=== PATIENT | male | born 1975 | race Asian ===

== ENCOUNTER 2016-05-17 19:23 | Inpatient (IN) | payer BC ==
[2016-05-17 20:15] VITALS: BMI 20.3
--- NOTE | 2016-05-17 20:24 | HP ---
Admission ROS [facility] - HPI Allergies/Adverse Reactions: Allergies Allergy/AdvReac Type Severity Reaction Status Date / Time No Known Drug Allergies Allergy Verified 05/17/16 20:48 potato AdvReac Flatulence Verified 05/17/16 20:48 - Ebola screening Have you traveled outside of the country in the last 21 days: No Have you had contact with anyone from an Ebola affected area: No Do you have a fever: No Patient History - Patient Medical History Hx Anemia: No Hx Asthma: Yes Hx Chronic Obstructive Pulmonary Disease (COPD): No Hx Cancer: No Hx Cardiac Disorders: No Hx Congestive Heart Failure: No Hx Hypertension: Yes Hx Hypercholesterolemia: No Hx Pacemaker: No HX Cerebrovascular Accident: No Hx Seizures: No Hx Dementia: No Hx Diabetes: No Hx Gastrointestinal Disorders: No Hx Liver Disease: No Hx Genitourinary Disorders: No Hx Sexually Transmitted Disorders: No Hx Renal Disease (ESRD): No Hx Thyroid Disease: No Hx Human Immunodeficiency Virus (HIV): No Hx Hepatitis C: No Hx Depression: Yes Hx Suicide Attempt: No Hx Bipolar Disorder: No Hx Schizophrenia: No - Patient Surgical History Past Surgical History: Yes Hx Neurologic Surgery: No Hx Cataract Extraction: No Hx Cardiac Surgery: No Hx Lung Surgery: No Hx Breast Surgery: No Hx Breast Biopsy: No Hx Abdominal Surgery: No Hx Appendectomy: Yes (AT 16 YRS OLD) Hx Cholecystectomy: No Hx Genitourinary Surgery: No Hx Section: No Hx Orthopedic Surgery: No Anesthesia Reaction: No - PPD History Date: 08/18/14 Results: 0 mm - Smoking Cessation Smoking history: Current every day smoker Have you smoked in the past 12 months: No Aproximately how many cigarettes per day: 10 Cigars Per Day: 0 Hx Chewing Tobacco Use: No Initiated information on smoking cessation: Yes 'Breaking Loose' booklet given: 05/17/16 Family Disease History - Family Disease History Family Disease History: Heart Disease: Father (HTN; ETOH DEPENDENT), Other: Father Cleared for Admission S - Detox or Rehab [facility] Level of Care: Medically Managed Detox Regimen/Protocol: Librium Screened but not Admitted - Documentation of Visit Screened but not Admitted: Yes Left Prior to Completion of Assessment: No Insurance Authorization Denied: No Patient Does Not Meet Criteria for Admission: Yes Level of Care Recommended at this Time: ER Evaluation/Care Alternative Treatment/Senior Care Info Provided: No Additional Information/Explanation: patient reports fell on parking lot ground, head and lumbar hit the ground, pain of head and back, ambulance was called and information provided to ER, return for alcohol detox when medically cleared. S Breath Alcohol Content Breath Alcohol Content: 0.159 Vital Signs - Vital Signs Vital Signs Refused: No Temperature: 97.1 F Temperature Source: Oral Pulse Rate: 93 Respiratory Rate: 18 Blood Pressure: 144/95 BP Location: Left Arm Blood Pressure Position: Sitting - Height Height: 5 ft 8 in - Weight Weight: 134 lb Weight Measurement Method: Standing Scale Body Mass Index (BMI): 20.3 - Bowel Function Bowel Movement: Yes
[2016-05-17] MEDS ORDERED: P-EPHED 60MG/TRIPROLIDI 2.5MG TABLET PO PRN (21:32)
[2016-05-17] MEDS ORDERED: hydrOXYzine PAMOATE 50 MG CAPSULE (FP) PO PRN (21:32)
[2016-05-17] MEDS ORDERED: chlordiazePOXIDE HCL 25 MG CAPSULE PO PRN (21:32)
[2016-05-17] MEDS ORDERED: MAGNESIUM CITRATE 300 ML BOTTLE PO PRN (21:32)
[2016-05-17] MEDS ORDERED: ACETAMINOPHEN 325 MG TABLET (FP) PO PRN (21:32)
[2016-05-17] MEDS ORDERED: LOPERAMIDE HCL 2 MG CAPSULE PO PRN (21:32)
[2016-05-17] MEDS ORDERED: guaiFENesin/D-METHORPHAN HB 10 ML UNIT-DOSE CUPS PO PRN (21:32)
[2016-05-17] MEDS ORDERED: MENTHOL/PHENOL 1 EACH UD MM PRN (21:32)
[2016-05-17] MEDS ORDERED: chlordiazePOXIDE HCL 25 MG CAPSULE PO ONE (21:32)
[2016-05-17] MEDS ORDERED: MAGNESIUM HYDROX 2400MG/30ML ORAL SUSPENSION 30 ML CUP PO PRN (21:32)
--- NOTE | 2016-05-17 22:56 | HP ---
CIWA Score - CIWA Score Nausea/Vomitin-Mild Nausea/No Vomiting Muscle Tremors: 4-Moderate,w/Arms Extend Anxiety: 4-Mod. Anxious/Guarded Agitation: 4-Moderately Restless Paroxysmal Sweats: 1-Minimal Palms Moist Orientation: 3-Disoriented Date>2 days Tacttile Disturbances: 0-None Auditory Disturbances: 0-None Visual Disturbances: 0-None Headache: 0-None Present CIWA-Ar Total Score: 17 Admission ROS S - HPI Chief Complaint: withdrawal sx Allergies/Adverse Reactions: Allergies Allergy/AdvReac Type Severity Reaction Status Date / Time No Known Drug Allergies Allergy Verified 05/17/16 20:48 potato AdvReac Flatulence Verified 05/17/16 20:48 History of Present Illness: 41 years old male with long history of alcohol dependence, has asthma hypertension depression gerd is admitted to detox Exam Limitations: No Limitations - Ebola screening Have you traveled outside of the country in the last 21 days: No Have you had contact with anyone from an Ebola affected area: No Have you been sick,other than usual withdrawal symptoms: No Do you have a fever: No - Review of Systems Constitutional: Chills, Loss of Appetite, Changes in sleep, Unexplained wgt Loss EENT: reports: No Symptoms Reported, Dental Problems (decaious lower teeth) Respiratory: reports: No Symptoms reported Cardiac: reports: Palpitations GI: reports: Nausea, Poor Appetite, Poor Fluid Intake, Indigestion, Abdominal cramping : reports: No Symptoms Reported Musculoskeletal: reports: Back Pain, Muscle Pain Integumentary: reports: No Symptoms Reported Neuro: reports: Tremors Endocrine: reports: No Symptoms Reported Hematology: reports: Easy Bleeding (when brushing teeth) Psychiatric: reports: Judgement Intact, Depressed Other Systems: Reviewed and Negative Patient History - Patient Medical History Hx Anemia: No Hx Asthma: Yes Hx Chronic Obstructive Pulmonary Disease (COPD): No Hx Cancer: No Hx Cardiac Disorders: No Hx Congestive Heart Failure: No Hx Hypertension: Yes Hx Hypercholesterolemia: No Hx Pacemaker: No HX Cerebrovascular Accident: No Hx Seizures: No Hx Dementia: No Hx Diabetes: No Hx Gastrointestinal Disorders: No Hx Liver Disease: Yes (fatty liver x 3 years) Hx Genitourinary Disorders: No Hx Sexually Transmitted Disorders: No Hx Renal Disease (ESRD): No Hx Thyroid Disease: No Hx Human Immunodeficiency Virus (HIV): No Hx Hepatitis C: No Hx Depression: Yes Hx Suicide Attempt: No Hx Bipolar Disorder: No Hx Schizophrenia: No - Patient Surgical History Past Surgical History: Yes Hx Neurologic Surgery: No Hx Cataract Extraction: No Hx Cardiac Surgery: No Hx Lung Surgery: No Hx Breast Surgery: No Hx Breast Biopsy: No Hx Abdominal Surgery: No Hx Appendectomy: Yes (AT 16 YRS OLD) Hx Cholecystectomy: No Hx Genitourinary Surgery: No Hx Orthopedic Surgery: No Anesthesia Reaction: No - PPD History Previous Implant?: Yes Documented Results: Negative w/proof Implanted On Prior R Admission?: Yes Date: 08/18/14 Results: 0 mm PPD to be Administered?: Yes - Smoking Cessation Smoking history: Former smoker Have you smoked in the past 12 months: No Aproximately how many cigarettes per day: 0 Cigars Per Day: 0 Hx Chewing Tobacco Use: Yes Initiated information on smoking cessation: Yes 'Breaking Loose' booklet given: 05/17/16 - Substance & Tx. History Hx Alcohol Use: Yes Hx Substance Use: No Substance Use Type: Alcohol Hx Substance Use Treatment: Yes - Substances Abused Alcohol Route: Oral Frequency: Daily Amount used: pint volka Age of first use: 32 Date of Last Use: 05/17/16 Family Disease History - Family Disease History Family Disease History: Heart Disease: Father (HTN; ETOH DEPENDENT), Other: Father Admission Physical Exam S - Vital Signs Vital Signs: Vital Signs - 24 hr 05/17/16 05/17/16 20:11 21:28 Temperature 97.1 F L 97.1 F L Pulse Rate 93 H 93 H Respiratory 18 18 Rate Blood Pressure 144/95 144/95 - Physical General Appearance: Yes: Appropriately Dressed, Moderate Distress, Alcohol on Breath, Thin, Tremorous, Irritable, Sweating, Anxious HEENTM: Yes: Hearing grossly Normal, Normal ENT Inspection, Normocephalic, Normal Voice Respiratory: Yes: Chest Non-Tender, Lungs Clear, Normal Breath Sounds, No Respiratory Distress, No Accessory Muscle Use Neck: Yes: Supple, Trachea in good position Breast: Yes: Breasts Symetrical Cardiology: Yes: Regular Rhythm, Regular Rate, S1, S2 Abdominal: Yes: Non Tender, Soft Genitourinary: Yes: Within Normal Limits Back: Yes: Normal Inspection Musculoskeletal: Yes: full range of Motion, Gait Steady, Back pain Extremities: Yes: Normal Range of Motion, Non-Tender, Tremors Neurological: Yes: Fully Oriented, Alert, Motor Strength 5/5, Normal Response, Depressed Affect Integumentary: Yes: Warm, Moist Lymphatic: Yes: Within Normal Limits - Diagnostic (1) Back pain Current Visit: Yes Status: Chronic Qualifiers: Back pain location: low back pain Chronicity: acute Back pain laterality: unspecified Sciatica presence: without sciatica Qualified Code(s): M54.5 - Low back pain (2) Alcohol dependence with uncomplicated intoxication Current Visit: Yes Status: Acute (3) Depression Current Visit: Yes Status: Suspected Qualifiers: Depression Type: dysthymia Qualified Code(s): F34.1 - Dysthymic disorder Comment: trazodone (4) GERD (gastroesophageal reflux disease) Current Visit: Yes Status: Acute Qualifiers: Esophagitis presence: without esophagitis Qualified Code(s): K21.9 - Gastro-esophageal reflux disease without esophagitis (5) Asthma Current Visit: Yes Status: Acute Qualifiers: Asthma severity: mild persistent Asthma complication type: with status asthmaticus Qualified Code(s): J45.32 - Mild persistent asthma with status asthmaticus (6) Hypertension Current Visit: Yes Status: Acute Qualifiers: Hypertension type: essential hypertension Qualified Code(s): I10 - Essential (primary) hypertension Cleared for Admission [facility] - Detox or Rehab [facility] Level of Care: Medically Managed Detox Regimen/Protocol: Librium S Breath Alcohol Content Breath Alcohol Content: 0.159 Urine Drug Screen - Results Drug Screen Negative: Yes
[2016-05-17] MEDS ORDERED: ALBUTEROL SO4 6.7 GM HFA INHALER IH PRN (23:07)
[2016-05-17] MEDS ORDERED: cloNIDine HCL 0.1 MG TABLET PO PRN (23:07)
[2016-05-17] MEDS ORDERED: NICOTINE POLACRILEX 2 MG GUM BUC PRN (23:10)
[2016-05-17] MEDS ORDERED: COLLOIDAL OATMEAL 1 BAR EACH TP PRN (23:11)
[2016-05-18] MEDS: RANITIDINE HCL 150 MG TABLET (FP) PO SCH ×3 (00:30→22:31)
[2016-05-18] MEDS: chlordiazePOXIDE HCL 25 MG CAPSULE PO SCH ×5 (00:30→22:32)
[2016-05-18] MEDS: THIAMINE HCL 100 MG TABLET (FP) PO SCH ×2 (00:31→22:31)
[2016-05-18] MEDS: diphenhydrAMINE HCL 50 MG CAPSULE PO PRN (00:33)
[2016-05-18] MEDS: MAG HYDROX/AL HYDROX/SIMETH 30 ML UNIT-DOSE CUP PO PRN ×2 (00:36→22:31)
[2016-05-18 10:02] LABS: URINE APPEARANCE CLEAR; URINE BILIRUBIN NEGATIVE (NEGATIVE); URINE BLOOD NEGATIVE (NEGATIVE); URINE COLOR YELLOW; URINE GLUCOSE (UA) NEGATIVE (NEGATIVE); URINE KETONE NEGATIVE (NEGATIVE); URINE LEUK ESTERASE NEGATIVE (NEGATIVE); URINE NITRITE NEGATIVE (NEGATIVE); URINE UROBILINOGEN NEGATIVE E.U./dl (0.2-1.0)
[2016-05-18 10:04] LABS: MCH 29.8 pg (25.7-33.7); MCHC 32.8 g/dl (32.0-35.9); MEAN CELL VOLUME 90.8 fl (80-96); MEAN PLT VOLUME 8.7 fl (7.5-11.1); RDW 13.7 % (11.9-15.9); WHITE BLOOD COUNT 2.4 K/mm3 (4.0-10.0)
[2016-05-18 10:07] LABS: PLATELET COUNT 36 K/MM3 (134-434)
[2016-05-18 10:12] LABS: URINE PROTEIN 1+ (NEGATIVE)
[2016-05-18 10:14] LABS: ALBUMIN 3.6 g/dl (3.4-5.0); ALK PHOS 63 U/L (45-117); ANION GAP 10 (8-16); CALCIUM 8.1 mg/dL (8.5-10.1); CO2 28 mmol/L (21-32); GLUCOSE,RANDOM 79 mg/dL (74-106); SGOT/AST 140 U/L (15-37); SGPT/ALT 91 U/L (12-78)
[2016-05-18 10:15] LABS: URINE MUCUS RARE; URINE RBC 3 /hpf (0-3)
[2016-05-18 10:23] LABS: BILIRUBIN,TOTAL 0.4 mg/dL (0.2-1.0); CREATININE 0.6 mg/dL (0.7-1.3); TOT PROT 7.1 g/dl (6.4-8.2)
--- NOTE | 2016-05-18 10:38 | PN ---
S CIWA - CIWA Score Nausea/Vomitin-No Nausea/No Vomiting Muscle Tremors: 4-Moderate,w/Arms Extend Anxiety: 4-Mod. Anxious/Guarded Agitation: 4-Moderately Restless Paroxysmal Sweats: 3 Orientation: 0-Oriented Tacttile Disturbances: 0-None Auditory Disturbances: 0-None Visual Disturbances: 0-None Headache: 0-None Present CIWA-Ar Total Score: 15 [facility] Progress Note (SOAP) Subjective: shakes sweats interrupted sleep agitation tired nausea body aches i need to speak to psych Objective: 05/18/16 10:36 Vital Signs Temperature 98.6 F 05/18/16 10:33 Pulse Rate 87 05/18/16 10:33 Respiratory Rate 16 05/18/16 10:33 Blood Pressure 144/85 05/18/16 10:33 O2 Sat by Pulse Oximetry (%) Laboratory Tests 05/18/16 05/18/16 05/18/16 07:00 07:00 07:00 WBC 2.4 L D RBC 3.58 L Hgb 10.6 L D Hct 32.5 L MCV 90.8 MCHC 32.8 RDW 13.7 D Plt Count 36 L* D MPV 8.7 Sodium 137 Potassium 3.5 Chloride 99 Carbon Dioxide 28 Anion Gap 10 BUN 9 D Creatinine 0.6 L D Creat Clearance w eGFR > 60 Random Glucose 79 Calcium 8.1 L Total Bilirubin 0.4 D AST 140 H D ALT 91 H D Alkaline Phosphatase 63 Total Protein 7.1 Albumin 3.6 Urine Color Yellow Urine Appearance Clear Urine pH 6.0 Ur Specific [place] 1.024 Urine Protein 1+ H Urine Glucose (UA) Negative Urine Ketones Negative Urine Blood Negative Urine Nitrite Negative Urine Bilirubin Negative Urine Urobilinogen Negative Ur Leukocyte Esterase Negative Urine RBC 3 Urine WBC None Urine Mucus Rare awake/alert lying in bed no acute distress elevated ast/alt low platelettes d/c tylenol repeat labs Assessment: 05/18/16 10:37 withdrawal sx Plan: continue detox increase fluids pending labs psych ordered
[2016-05-18] MEDS ORDERED: ONDANSETRON *ODT* 4 MG TABLET SL PRN (10:41)
--- NOTE | 2016-05-18 11:12 | EKG ---
Test Reason : Blood Pressure : / mmHG Vent. Rate : 081 BPM Atrial Rate : 081 BPM P-R Int : 134 ms QRS Dur : 070 ms QT Int : 358 ms P-R-T Axes : 073 042 030 degrees QTc Int : 415 ms NORMAL SINUS RHYTHM WITH SINUS ARRHYTHMIA NO PREVIOUS ECGS AVAILABLE Confirmed by DELROY GALAN MD ([id number]) on 05/18/2016 11:12:11 AM Referred By: Confirmed By:DELROY GALAN MD
--- NOTE | 2016-05-18 11:28 | CONSULT ---
[facility] Psychiatric Consult - Data Date of interview: 05/18/16 Admission source: [facility] Identifying data: Readmission to [facility] for this 41 y/o -born male seeking detox treatment at [address] [place] [address] for alcohol dependence.He is without children,homeless,currently unemployed and supported on Public Assistance. Substance Abuse History: - Smoking Cessation. Smoking history: Former smoker. Have you smoked in the past 12 months: No. Aproximately how many cigarettes per day: 0. Cigars Per Day: 0. Hx Chewing Tobacco Use: Yes. Initiated information on smoking cessation: Yes. 'Breaking Loose' booklet given: . - Substance & Tx. History. Hx Alcohol Use: Yes. Hx Substance Use: No. Substance Use Type: Alcohol. Hx Substance Use Treatment: Yes. - Substances Abused. Alcohol. Route: Oral. Frequency: Daily. Amount used: pint volka. Age of first use: 32. Date of Last Use: 05/17/16. Discussed in this session.Patient confirmed this pattern of substance use. Medical History: Remarkable for bronchial asthma,hypertension,fatty liver, diabetes mellitus,GERD and a history of appendectomy (age 16). Psychiatric History: No reported history of mental illness or psychiatric hospitalizations. Physical/Sexual Abuse/Trauma History: Patient denies. Additional Comment: Drug Screen is negative. Mental Status Exam - Mental Status Exam Alert and Oriented to: Time, Place, Person Cognitive Function: Good Patient Appearance: Well Groomed (short stature) Mood: Hopeful, Euthymic Affect: Appropriate, Normal Range Patient Behavior: Fatigued, Talkative, Appropriate, Cooperative (friendly) Speech Pattern: Clear, Appropriate Voice Loudness: Normal Thought Process: Goal Oriented Thought Disorder: Not Present Hallucinations: Denies Suicidal Ideation: Denies Homicidal Ideation: Denies Insight/Judgement: Fair Sleep: Poorly, Difficulty falling asleep (wants trazodone) Appetite: Good Muscle strength/Tone: Normal Psychiatric Findings - Problem List ([place] 1, 2,3) (1) Alcohol dependence with uncomplicated intoxication Current Visit: Yes Status: Acute (2) Alcohol-induced mood disorder Current Visit: Yes Status: Acute (3) Alcohol induced insomnia Current Visit: Yes Status: Chronic (4) Asthma Current Visit: Yes Status: Acute Qualifiers: Asthma severity: mild persistent Asthma complication type: with status asthmaticus Qualified Code(s): J45.32 - Mild persistent asthma with status asthmaticus (5) GERD (gastroesophageal reflux disease) Current Visit: Yes Status: Chronic Qualifiers: Esophagitis presence: without esophagitis Qualified Code(s): K21.9 - Gastro-esophageal reflux disease without esophagitis (6) Hypertension Current Visit: Yes Status: Chronic Qualifiers: Hypertension type: essential hypertension Qualified Code(s): I10 - Essential (primary) hypertension (7) Back pain Current Visit: Yes Status: Chronic Qualifiers: Back pain location: low back pain Chronicity: acute Back pain laterality: unspecified Sciatica presence: without sciatica Qualified Code(s): M54.5 - Low back pain - Initial Treatment Plan Initial Treatment Plan: Psychoeducation.Detoxification.Trazodone 100 mg po hs ( patient's request).Patient is made aware of the risk of priapism and he is advised to alert MD/RN if occurrence of painful/prolonged erection.He agrees to adhere to this careplan.Observation.
[2016-05-18] MEDS: PRENATAL VITAMINS W/ FOLIC ACID TABLET (FP) PO SCH (11:50)
--- NOTE | 2016-05-18 13:42 | PN ---
[facility] Progress Note Note: 1. late last night pt fell in [facility] parking lot hit head and back 2. pt sent to [place] ED for evaluation 3. No CT scan done while pt was there. 4. pt returned to start detox 5. pt lab result for platelet is 36 today. will send pt back to ED for CT scan and re-evaluation once cleared pt can return to complete detox. report given to LOUANN Reyes who will consult with DUNCAN Farrar.
[2016-05-18] MEDS: LIDOCAINE 5% TOPICAL PATCH TP SCH (14:00)
[2016-05-18] MEDS: NICOTINE 21 MG/24 HOURS TOPICAL PATCH TD SCH (14:01)
[2016-05-18] MEDS: traZODone HCL 100 MG TABLET (FP) PO SCH (22:31)
[2016-05-18] MEDS: CYCLOBENZAPRINE HCL 10 MG TABLET (FP) PO PRN (22:31)
[2016-05-19] MEDS: chlordiazePOXIDE HCL 25 MG CAPSULE PO SCH ×3 (06:08→17:50)
[2016-05-19] MEDS: RANITIDINE HCL 150 MG TABLET (FP) PO SCH ×2 (10:11→22:16)
[2016-05-19] MEDS: PRENATAL VITAMINS W/ FOLIC ACID TABLET (FP) PO SCH (10:11)
[2016-05-19] MEDS: LORATADINE 10 MG TABLET PO SCH ×3 (10:12→20:47)
[2016-05-19] MEDS: HYDROCORTISONE 1% TOPICAL CREAM 30 GM TUBE TP SCH ×2 (10:15→22:15)
[2016-05-19] MEDS: LIDOCAINE 5% TOPICAL PATCH TP SCH (10:15)
[2016-05-19] MEDS: CYCLOBENZAPRINE HCL 10 MG TABLET (FP) PO PRN (10:15)
[2016-05-19] MEDS: NICOTINE 21 MG/24 HOURS TOPICAL PATCH TD SCH (10:16)
[2016-05-19 11:15] LABS: ALBUMIN 3.9 g/dl (3.4-5.0); ANION GAP 8 (8-16); CO2 27 mmol/L (21-32)
[2016-05-19 11:16] LABS: BASOPHIL 0.5 % (0-2.0); EOSINOPHIL 1.6 % (0-4.5); MCH 29.8 pg (25.7-33.7); MCHC 32.5 g/dl (32.0-35.9); MEAN CELL VOLUME 91.8 fl (80-96); NEUTROPHILS 59.6 % (42.8-82.8); PLATELET COUNT 50 K/MM3 (134-434)
[2016-05-19 11:21] LABS: ALK PHOS 70 U/L (45-117); BILIRUBIN,TOTAL 0.7 mg/dL (0.2-1.0); CREATININE 0.5 mg/dL (0.7-1.3); GLUCOSE,RANDOM 85 mg/dL (74-106); SGOT/AST 157 U/L (15-37); SGPT/ALT 108 U/L (12-78); TOT PROT 7.6 g/dl (6.4-8.2)
--- NOTE | 2016-05-19 11:33 | PN ---
S CIWA - CIWA Score Nausea/Vomitin Muscle Tremors: 3 Anxiety: 3 Agitation: 3 Paroxysmal Sweats: 1-Minimal Palms Moist Orientation: 0-Oriented Tacttile Disturbances: 1-Very Mild Itch/Numbness Auditory Disturbances: 1-Very Mild Visual Disturbances: 1-Very Mild Sensitivity Headache: 2-Mild CIWA-Ar Total Score: 18 BHS Progress Note (SOAP) Subjective: ALERT,IRRITABLE,ANXIOUS,INTERRUPTED SLEEP,TREMOR,RASH ON FACE Objective: 05/19/16 11:30 Vital Signs Temperature 96.4 F L 05/19/16 09:41 Pulse Rate 117 H 05/19/16 09:41 Respiratory Rate 18 05/19/16 09:41 Blood Pressure 145/94 05/19/16 09:41 O2 Sat by Pulse Oximetry (%) EKG NSR WITH SINUS ARRHYTHMIA Laboratory Last Values WBC 3.0 K/mm3 (4.0-10.0) L 05/19/16 07:50 RBC 3.96 M/mm3 (4.00-5.60) L 05/19/16 07:50 Hgb 11.8 GM/dL (11.7-16.9) D 05/19/16 07:50 Hct 36.3 % (35.4-49) D 05/19/16 07:50 MCV 91.8 fl (80-96) 05/19/16 07:50 MCHC 32.5 g/dl (32.0-35.9) 05/19/16 07:50 RDW 14.0 % (11.9-15.9) 05/19/16 07:50 Plt Count 50 K/MM3 (134-434) L D 05/19/16 07:50 MPV 10.0 fl (7.5-11.1) D 05/19/16 07:50 Neutrophils % 59.6 % (42.8-82.8) 05/19/16 07:50 Lymphocytes % 17.1 % (8-40) 05/19/16 07:50 Monocytes % 21.2 % (3.8-10.2) H 05/19/16 07:50 Eosinophils % 1.6 % (0-4.5) D 05/19/16 07:50 Basophils % 0.5 % (0-2.0) 05/19/16 07:50 Sodium 137 mmol/L (136-145) 05/19/16 07:50 Potassium 4.0 mmol/L (3.5-5.1) 05/19/16 07:50 Chloride 102 mmol/L (98-107) 05/19/16 07:50 Carbon Dioxide 27 mmol/L (21-32) 05/19/16 07:50 Anion Gap 8 (8-16) 05/19/16 07:50 BUN 9 mg/dL (7-18) D 05/19/16 07:50 Creatinine 0.5 mg/dL (0.7-1.3) L D 05/19/16 07:50 Creat Clearance w eGFR > 60 (>60) 05/19/16 07:50 Random Glucose 85 mg/dL (74-106) 05/19/16 07:50 Calcium 9.0 mg/dL (8.5-10.1) 05/19/16 07:50 Total Bilirubin 0.7 mg/dL (0.2-1.0) D 05/19/16 07:50 AST 157 U/L (15-37) H D 05/19/16 07:50 ALT 108 U/L (12-78) H D 05/19/16 07:50 Alkaline Phosphatase 70 U/L (45-117) 05/19/16 07:50 Total Protein 7.6 g/dl (6.4-8.2) 05/19/16 07:50 Albumin 3.9 g/dl (3.4-5.0) 05/19/16 07:50 Urine Color Yellow 05/18/16 07:00 Urine Appearance Clear 05/18/16 07:00 Urine pH 6.0 (5.0-8.0) 05/18/16 07:00 Ur Specific [place] 1.024 (1.001-1.035) 05/18/16 07:00 Urine Protein 1+ (NEGATIVE) H 05/18/16 07:00 Urine Glucose (UA) Negative (NEGATIVE) 05/18/16 07:00 Urine Ketones Negative (NEGATIVE) 05/18/16 07:00 Urine Blood Negative (NEGATIVE) 05/18/16 07:00 Urine Nitrite Negative (NEGATIVE) 05/18/16 07:00 Urine Bilirubin Negative (NEGATIVE) 05/18/16 07:00 Urine Urobilinogen Negative E.U./dl (0.2-1.0) 05/18/16 07:00 Ur Leukocyte Esterase Negative (NEGATIVE) 05/18/16 07:00 Urine RBC 3 /hpf (0-3) 05/18/16 07:00 Urine WBC None /hpf (3-5) 05/18/16 07:00 Urine Mucus Rare 05/18/16 07:00 RPR Titer Nonreactive (NONREACTIVE) 05/18/16 07:00 Assessment: 05/19/16 11:32 WITHDRAWAL SYMPTOM Plan: CONTINUE DETOX
[2016-05-19] MEDS: IBUPROFEN 400 MG TABLET (FP) PO PRN ×2 (12:47→22:17)
[2016-05-19] MEDS: THIAMINE HCL 100 MG TABLET (FP) PO SCH (22:15)
[2016-05-19] MEDS: traZODone HCL 100 MG TABLET (FP) PO SCH (22:15)
[2016-05-19] MEDS: chlordiazePOXIDE 5 MG CAPSULE PO SCH (22:16)
[2016-05-20] MEDS: chlordiazePOXIDE 5 MG CAPSULE PO SCH ×3 (05:22→17:51)
[2016-05-20] MEDS: HYDROCORTISONE 1% TOPICAL CREAM 30 GM TUBE TP SCH ×2 (10:13→22:56)
[2016-05-20] MEDS: PRENATAL VITAMINS W/ FOLIC ACID TABLET (FP) PO SCH (10:13)
[2016-05-20] MEDS: LORATADINE 10 MG TABLET PO SCH (10:13)
[2016-05-20] MEDS: NICOTINE 21 MG/24 HOURS TOPICAL PATCH TD SCH (10:15)
[2016-05-20] MEDS: LIDOCAINE 5% TOPICAL PATCH TP SCH (10:16)
[2016-05-20] MEDS: RANITIDINE HCL 150 MG TABLET (FP) PO SCH ×2 (10:17→22:54)
--- NOTE | 2016-05-20 14:11 | PN ---
BHS Progress Note (SOAP) Subjective: sweating,interrupted sleep,restless Objective: 05/20/16 14:09 Vital Signs - 8 hr 05/20/16 10:00 Temperature 97.3 F L Pulse Rate 95 H Respiratory 20 Rate Blood Pressure 126/86 Laboratory Tests 05/18/16 05/18/16 05/18/16 07:00 07:00 07:00 WBC 2.4 L D RBC 3.58 L Hgb 10.6 L D Hct 32.5 L MCV 90.8 MCHC 32.8 RDW 13.7 D Plt Count 36 L* D MPV 8.7 Neutrophils % Lymphocytes % Monocytes % Eosinophils % Basophils % Sodium 137 Potassium 3.5 Chloride 99 Carbon Dioxide 28 Anion Gap 10 BUN 9 D Creatinine 0.6 L D Creat Clearance w eGFR > 60 Random Glucose 79 Calcium 8.1 L Total Bilirubin 0.4 D AST 140 H D ALT 91 H D Alkaline Phosphatase 63 Total Protein 7.1 Albumin 3.6 Urine Color Urine Appearance Urine pH Ur Specific [place] Urine Protein Urine Glucose (UA) Urine Ketones Urine Blood Urine Nitrite Urine Bilirubin Urine Urobilinogen Ur Leukocyte Esterase Urine RBC Urine WBC Urine Mucus RPR Titer Nonreactive 05/18/16 05/19/16 05/19/16 07:00 07:50 07:50 WBC 3.0 L RBC 3.96 L Hgb 11.8 D Hct 36.3 D MCV 91.8 MCHC 32.5 RDW 14.0 Plt Count 50 L D MPV 10.0 D Neutrophils % 59.6 Lymphocytes % 17.1 Monocytes % 21.2 H Eosinophils % 1.6 D Basophils % 0.5 Sodium 137 Potassium 4.0 Chloride 102 Carbon Dioxide 27 Anion Gap 8 BUN 9 D Creatinine 0.5 L D Creat Clearance w eGFR > 60 Random Glucose 85 Calcium 9.0 Total Bilirubin 0.7 D AST 157 H D ALT 108 H D Alkaline Phosphatase 70 Total Protein 7.6 Albumin 3.9 Urine Color Yellow Urine Appearance Clear Urine pH 6.0 Ur Specific [place] 1.024 Urine Protein 1+ H Urine Glucose (UA) Negative Urine Ketones Negative Urine Blood Negative Urine Nitrite Negative Urine Bilirubin Negative Urine Urobilinogen Negative Ur Leukocyte Esterase Negative Urine RBC 3 Urine WBC None Urine Mucus Rare RPR Titer labs noted Assessment: 05/20/16 14:10 withdrawal sx. Plan: continue detox
[2016-05-20] MEDS: THIAMINE HCL 100 MG TABLET (FP) PO SCH (22:54)
[2016-05-20] MEDS: chlordiazePOXIDE HCL 10 MG CAPSULE PO SCH (22:54)
[2016-05-20] MEDS: traZODone HCL 100 MG TABLET (FP) PO SCH (22:54)
[2016-05-20] MEDS: diphenhydrAMINE HCL 50 MG CAPSULE PO PRN (22:56)
[2016-05-21] MEDS: chlordiazePOXIDE HCL 10 MG CAPSULE PO SCH ×2 (05:21→10:21)
[2016-05-21 05:58] VITALS: BP 115/63; PULSE 63; TEMP 97.9
--- NOTE | 2016-05-21 09:09 | DS ---
[facility] Detox Discharge Summary Admission Date: 05/17/16 Discharge Date: 05/21/16 - History Present History: Alcohol Dependence, Sedative Dependence - Physical Exam Results Vital Signs: Vital Signs Temperature 97.9 F 05/21/16 05:58 Pulse Rate 63 05/21/16 05:58 Respiratory Rate 16 05/21/16 05:58 Blood Pressure 115/63 05/21/16 05:58 O2 Sat by Pulse Oximetry (%) - Treatment Hospital Course: Detox Protocol Followed, Detoxed Safely, Responded well, Discharged Condition Good, Rehab Referral Accepted - Medication Discharge Medications: Ambulatory Orders Trazodone HCl [Desyrel -] 100 mg PO HS #30 tablet 05/18/16 - Diagnosis (1) Alcohol dependence with uncomplicated intoxication Current Visit: Yes Status: Chronic (2) Alcohol-induced mood disorder Current Visit: Yes Status: Chronic (3) Asthma Current Visit: Yes Status: Chronic Qualifiers: Asthma severity: mild persistent Asthma complication type: with status asthmaticus Qualified Code(s): J45.32 - Mild persistent asthma with status asthmaticus (4) Alcohol induced insomnia Current Visit: Yes Status: Chronic (5) Back pain Current Visit: Yes Status: Chronic Qualifiers: Back pain location: low back pain Chronicity: acute Back pain laterality: unspecified Sciatica presence: without sciatica Qualified Code(s): M54.5 - Low back pain (6) GERD (gastroesophageal reflux disease) Current Visit: Yes Status: Chronic Qualifiers: Esophagitis presence: without esophagitis Qualified Code(s): K21.9 - Gastro-esophageal reflux disease without esophagitis (7) Hypertension Current Visit: Yes Status: Chronic Qualifiers: Hypertension type: essential hypertension Qualified Code(s): I10 - Essential (primary) hypertension (8) Depression Current Visit: Yes Status: Suspected Qualifiers: Depression Type: dysthymia Qualified Code(s): F34.1 - Dysthymic disorder (9) Alcohol withdrawal Current Visit: No Status: Acute (10) Drug-induced mood disorder Current Visit: No Status: Acute (11) Fall Current Visit: No Status: Acute (12) Head trauma Current Visit: No Status: Acute (13) Rib pain on right side Current Visit: No Status: Acute (14) Xanax use disorder, mild, abuse Current Visit: No Status: Acute (15) Blackout spell Current Visit: No Status: Chronic - AMA Did Patient Leave Against Medical Advice: No
[2016-05-21] MEDS: PRENATAL VITAMINS W/ FOLIC ACID TABLET (FP) PO SCH (10:21)
[2016-05-21] MEDS: LORATADINE 10 MG TABLET PO SCH (10:21)
[2016-05-21] MEDS: HYDROCORTISONE 1% TOPICAL CREAM 30 GM TUBE TP SCH (10:22)
[2016-05-21] MEDS: NICOTINE 21 MG/24 HOURS TOPICAL PATCH TD SCH (10:22)
[2016-05-21] MEDS: RANITIDINE HCL 150 MG TABLET (FP) PO SCH (12:13)
[2016-05-21] MEDS: LIDOCAINE 5% TOPICAL PATCH TP SCH (12:16)
== END 2016-05-21 12:40 | disposition home or self-care (01) | DRG 775 ==
LOC: YASAS 19:23 → Y6N 23:28
PROVIDERS: ADMIT Internal Medicine; ATTEND Internal Medicine Addiction Medicine
PROC: HZ2ZZZZ Detoxification Services for Substance Abuse Treatment (ICD-10-PCS; principal; 2016-05-21)
DX: F10.230 Alcohol dependence with withdrawal, uncomplicated (principal); F10.24 Alcohol dependence with alcohol-induced mood disorder; F10.282 Alcohol dependence with alcohol-induced sleep disorder; F34.1 Dysthymic disorder; I10 Essential (primary) hypertension; J45.32 Mild persistent asthma with status asthmaticus; K21.9 Gastro-esophageal reflux disease without esophagitis; M54.5 Low back pain; Z59.0 Homelessness
CPT/HCPCS: 36415; 80053; 81003; 81015; 85025; 85027; 86593; 93005; 93010

== ENCOUNTER 2016-05-17 20:45 | Emergency (ER) | payer BC ==
[2016-05-17 20:53] VITALS: BP 135/90; PULSE 85; TEMP 97.5; BMI 18.2
[2016-05-17] MEDS ORDERED: IBUPROFEN 400 MG TABLET (FP) PO ONE ×2 (21:38→21:44)
--- NOTE | 2016-05-17 21:42 | PDOC ---
History of Present Illness - General Chief Complaint: Injury Stated Complaint: FALL Time Seen by Provider: 05/17/16 20:55 - History of Present Illness Initial Comments: 05/17/16 21:39 CHIEF COMPLAINT: fall HISTORY OF PRESENT ILLNESS: 41 yo M with hx of alcohol abuse presents to fast track with back pain s/p fall on ice. Patient is largely incoherent and states he wants to go to rehab. No recent travel or sick contacts. PAST MEDICAL HISTORY: Denies past medical history FAMILY HISTORY: Denies SOCIAL HISTORY: Daily alcohol use. SURGICAL HISTORY: Denies ALLERGIES: No known drug allergies REVIEW OF SYSTEMS General/Constitutional: Denies fever or chills. Denies weakness, weight change. HEENT: Denies change in vision. Denies ear pain or discharge. Denies sore throat. Cardiovascular: Denies chest pain or shortness of breath. Respiratory: Denies cough, wheezing, or hemoptysis. Gastrointestinal: Denies nausea, vomiting, diarrhea or constipation. Denies rectal bleeding. Genitourinary: Denies dysuria, frequency, or change in urination. Musculoskeletal: Denies joint or muscle swelling or pain. Denies neck or back pain. Skin and breasts: Denies rash or easy bruising. Neurologic: Denies headache, vertigo, loss of consciousness, or loss of sensation. PHYSICAL EXAM General Appearance: Well-appearing, appropriately dressed. No apparent distress , no intoxication. HEENT: EOMI, PERRLA, normal ENT inspection, normal voice, TMs normal, pharynx normal. No conjunctival pallor. No photophobia, scleral icterus. Neck: Supple. Trachea midline. No tenderness, rigidity, carotid bruit, stridor , lymphadenopathy, or thyromegaly. Respiratory/Chest: Lungs CTAB. No shortness of breath, chest tenderness, respiratory distress, accessory muscle use. No crackles, rales, rhonchi, stridor , wheezing, dullness Cardiovascular: RRR. S1, S2. No JVD, murmur, bradycardia, tachycardia. Vascular Pulses: Dorsalis-Pedis (R): 2+, Dorsalis-Pedis (L): 2+ Gastrointestinal/Abdominal: Normal bowel sounds. Abdomen soft, non-distended. No tenderness or rebound tenderness. No organomegaly, pulsatile mass, guarding , hernia, hepatomegaly, splenomegaly. Lymphatic: No adenopathy, tenderness. Musculoskeletal/Extremities: Normal inspection. FROM of all extremities, normal capillary refill. Pelvis Stable. No CVA tenderness. No tenderness to extremities, pedal edema, swelling, erythema or deformity. Integumentary: Appropriate color, dry, warm. No cyanosis, erythema, jaundice or rash Neurologic: road equipment operator II-XII intact. Fully oriented, alert. Appropriate mood/affect. Motor strength 5/5. No appreciable EOM palsy, facial droop or sensory deficit. Past History - Past Medical History Allergies/Adverse Reactions: Allergies Allergy/AdvReac Type Severity Reaction Status Date / Time No Known Drug Allergies Allergy Verified 05/17/16 20:48 potato AdvReac Flatulence Verified 05/17/16 20:48 Home Medications: Ambulatory Orders Trazodone HCl [Desyrel -] 100 mg PO HS #30 tablet 02/28/15 Anemia: No Asthma: Yes Cancer: No Cardiac Disorders: No CVA: No COPD: No CHF: No Dementia: No Diabetes: No GI Disorders: No Disorders: No HTN: Yes Hypercholesterolemia: No Kidney Stones: No Liver Disease: No Suicide Attempt (Hx): No Seizures: No Thyroid Disease: No - Surgical History Abdominal Surgery: No Appendectomy: Yes (AT 16 YRS OLD) Cardiac Surgery: No Cholecystectomy: No Lung Surgery: No Neurologic Surgery: No Orthopedic Surgery: No - Reproductive History Testicular Surgery: No - Psycho/Social/Smoking Cessation Hx Anxiety: Yes Suicidal Ideation: No Smoking History: Current every day smoker Have you smoked in the past 12 months: No Number of Cigarettes Smoked Daily: 10 Cigars Per Day: 0 Information on smoking cessation initiated: Yes 'Breaking Loose' booklet given: 05/17/16 Hx Alcohol Use: Yes (reports dailydrinking vodka, whiskey and beer) Drug/Substance Use Hx: No Substance Use Type: Alcohol Hx Substance Use Treatment: Yes ([place], several detox. at [facility]) Trauma Specific PMHX - Complaint Specific PMHX Arthritis: No *Physical Exam - Vital Signs Last Vital Signs Temp Pulse Resp BP Pulse Ox 97.5 F L 85 18 135/90 98 05/17/16 20:49 05/17/16 20:49 05/17/16 20:49 05/17/16 20:49 05/17/16 20:49 Medical Decision Making - Medical Decision Making 05/17/16 21:40 41 yo M with hx of alcohol abuse presents intoxicated to fast track with pain to back s/p fall on ice. 800 mg ibuprofen *DC/Admit/Observation/Transfer Diagnosis at time of Disposition: Back pain Qualifiers: Back pain location: low back pain Chronicity: acute Back pain laterality: unspecified Sciatica presence: without sciatica Qualified Code(s): M54.5 - Low back pain - Discharge Dispostion Disposition: I.P. ALCOHOL/SUBS ABUSE REHAB Condition at time of disposition: Stable Admit: No - Referrals Referrals: Luther Olsen MD [Staff Physician] - - Patient Instructions Printed Discharge Instructions: DI for Alcohol Abuse, DI for Low Back Pain Additional Instructions: Please follow up with Dr. Olsen for rehab. If you develop any new or worsening symptoms, please return to ER.
[2016-05-18] MEDS ORDERED: traZODone HCL 50 MG TABLET (FP) PO SCH (22:00)
== END 2016-05-17 21:52 | disposition other institution (70) ==
LOC: JERFT 20:45
DX: M54.5 Low back pain (principal); F10.20 Alcohol dependence, uncomplicated; I10 Essential (primary) hypertension; J45.909 Unspecified asthma, uncomplicated; F17.210 Nicotine dependence, cigarettes, uncomplicated; Z59.0 Homelessness
CPT/HCPCS: 99281-25

== ENCOUNTER 2016-05-18 14:38 | Emergency (ER) | payer BC ==
[2016-05-18 14:51] VITALS: BMI 16.5
[2016-05-18 15:06] LABS: BASOPHIL 0.8 % (0-2.0); EOSINOPHIL 0.8 % (0-4.5); MCHC 33.2 g/dl (32.0-35.9); MEAN CELL VOLUME 90.2 fl (80-96); MEAN PLT VOLUME 8.4 fl (7.5-11.1); NEUTROPHILS 60.1 % (42.8-82.8); PLATELET COUNT 39 K/MM3 (134-434); RDW 14.1 % (11.9-15.9); WHITE BLOOD COUNT 3.3 K/mm3 (4.0-10.0)
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
[2016-05-18 15:32] LABS: ALBUMIN 3.6 g/dl (3.4-5.0); ANION GAP 12 (8-16); BILIRUBIN,TOTAL 0.5 mg/dL (0.2-1.0); CALCIUM 8.1 mg/dL (8.5-10.1); CO2 27 mmol/L (21-32); CREATININE 0.7 mg/dL (0.7-1.3); GLUCOSE,RANDOM 99 mg/dL (74-106); SGOT/AST 124 U/L (15-37); SGPT/ALT 86 U/L (12-78); TOT PROT 7.1 g/dl (6.4-8.2)
[2016-05-18 15:33] LABS: ALK PHOS 63 U/L (45-117)
[2016-05-18 17:29] VITALS: BP 113/80; PULSE 60; TEMP 97.9
== END 2016-05-18 18:23 | disposition home or self-care (01) ==
LOC: JER 14:38
DX: R07.81 Pleurodynia (principal); S09.90XD Unspecified injury of head, subsequent encounter; W18.39XA Other fall on same level, initial encounter; Y93.9 Activity, unspecified; Y92.238 Other place in hospital as the place of occurrence of the external cause; F10.10 Alcohol abuse, uncomplicated; K21.9 Gastro-esophageal reflux disease without esophagitis; K76.0 Fatty (change of) liver, not elsewhere classified; I10 Essential (primary) hypertension; J45.909 Unspecified asthma, uncomplicated
CPT/HCPCS: 36415; 70450-TC; 71101-TC-RT; 80053; 85025; 99282-25

== ENCOUNTER 2017-11-05 22:41 | Inpatient (IN) | payer OTHER ==
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
[2017-11-05] MEDS ORDERED: MAGNESIUM HYDROX 2400MG/30ML ORAL SUSPENSION 30 ML CUP PO PRN (22:54)
[2017-11-05] MEDS ORDERED: chlordiazePOXIDE HCL 25 MG CAPSULE PO PRN (22:54)
[2017-11-05] MEDS ORDERED: hydrOXYzine PAMOATE 50 MG CAPSULE (FP) PO PRN (22:54)
[2017-11-05] MEDS ORDERED: MAGNESIUM CITRATE 300 ML BOTTLE PO PRN (22:54)
[2017-11-05] MEDS ORDERED: guaiFENesin/D-METHORPHAN HB 10 ML UNIT-DOSE CUPS PO PRN (22:54)
[2017-11-05] MEDS ORDERED: NICOTINE POLACRILEX 2 MG GUM BC PRN (22:54)
[2017-11-05] MEDS ORDERED: MENTHOL/PHENOL 1 EACH UD MM PRN (22:54)
[2017-11-05] MEDS ORDERED: ACETAMINOPHEN 325 MG TABLET (FP) PO PRN (22:54)
[2017-11-05] MEDS ORDERED: MAG HYDROX/AL HYDROX/SIMETH 30 ML UNIT-DOSE CUP PO PRN (22:54)
[2017-11-05] MEDS ORDERED: LOPERAMIDE HCL 2 MG CAPSULE PO PRN (22:54)
[2017-11-05 23:13] VITALS: BMI 18.2
[2017-11-05] MEDS ORDERED: ALBUTEROL SO4 8 GM HFA INHALER IH PRN (23:15)
[2017-11-06] MEDS: MELATONIN 5 MG TABLETS PO PRN ×2 (01:25→22:02)
[2017-11-06] MEDS: P-EPHED 60MG/TRIPROLIDI 2.5MG TABLET PO PRN ×2 (01:26→14:14)
[2017-11-06] MEDS: chlordiazePOXIDE HCL 25 MG CAPSULE PO SCH ×5 (02:31→22:00)
[2017-11-06 10:05] LABS: HEMATOCRIT 37.3 % (35.4-49); HEMOGLOBIN 12.3 GM/dL (11.7-16.9); MCH 27.8 pg (25.7-33.7); MCHC 32.9 g/dl (32.0-35.9); MEAN CELL VOLUME 84.5 fl (80-96); MEAN PLT VOLUME 8.6 fl (7.5-11.1); PLATELET COUNT 70 K/MM3 (134-434); RBC 4.41 M/mm3 (4.00-5.60); RDW 16.8 % (11.9-15.9)
[2017-11-06] MEDS: PRENATAL VITAMINS W/ FOLIC ACID TABLET (FP) PO SCH (10:10)
[2017-11-06] MEDS: IBUPROFEN 400 MG TABLET (FP) PO PRN ×2 (10:12→20:13)
[2017-11-06] MEDS: NICOTINE 14 MG/24 HOURS TOPICAL PATCH TD SCH (10:13)
--- NOTE | 2017-11-06 10:47 | EKG ---
Test Reason : Blood Pressure : / mmHG Vent. Rate : 056 BPM Atrial Rate : 056 BPM P-R Int : 134 ms QRS Dur : 086 ms QT Int : 472 ms P-R-T Axes : 037 048 041 degrees QTc Int : 455 ms SINUS BRADYCARDIA OTHERWISE NORMAL ECG WHEN COMPARED WITH ECG OF 18-MAY-2016 00:13, NO SIGNIFICANT CHANGE WAS FOUND Confirmed by YU TURNER MD ([id number]) on 11/06/2017 10:47:07 AM Referred By: Fuentes Burk Confirmed By:YU TURNER MD
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
[2017-11-06 14:19] LABS: ALBUMIN 3.8 g/dl (3.4-5.0); ANION GAP 13 (8-16); BLOOD UREA NITROGEN 5 mg/dL (7-18); CALCIUM 8.4 mg/dL (8.5-10.1); CHLORIDE 97 mmol/L (98-107); CO2 26 mmol/L (21-32); CREATININE 0.6 mg/dL (0.7-1.3); GLUCOSE,RANDOM 62 mg/dL (74-106); POTASSIUM 3.5 mmol/L (3.5-5.1); SGOT/AST 148 U/L (15-37); SGPT/ALT 111 U/L (12-78); SODIUM 136 mmol/L (136-145)
[2017-11-06 14:20] LABS: BILIRUBIN,TOTAL 0.9 mg/dL (0.2-1.0); TOT PROT 7.8 g/dl (6.4-8.2)
[2017-11-06 14:22] LABS: ALK PHOS 80 U/L (45-117)
[2017-11-06 14:53] LABS: URINE APPEARANCE CLEAR; URINE BILIRUBIN NEGATIVE (<2.0 mg/dL); URINE COLOR YELLOW; URINE GLUCOSE (UA) NEGATIVE (NEGATIVE); URINE KETONE 2+ (NEGATIVE); URINE LEUK ESTERASE NEGATIVE (NEGATIVE); URINE NITRITE NEGATIVE (NEGATIVE); URINE PROTEIN NEGATIVE (NEGATIVE)
[2017-11-06] MEDS ORDERED: PNEUMOCOCCAL 23 VACCINE 0.5 ML VIAL IM ONE (15:00)
--- NOTE | 2017-11-06 16:55 | CONSULT ---
[facility] Psychiatric Consult - Data Date of interview: 11/06/17 Admission source: [facility] Identifying data: Another admission to [facility] for this 42 y/o -born male seeking detox treatment at [address] [place] [address] for alcohol dependence.Patient is ,a father of two (claimed none at a previous meeting with this technical document writer), homeless,currently unemployed and supported on Public Assistance. Substance Abuse History: Confirmed by the patient in this interview.Smoking history: Current every day smoker. Have you smoked in the past 12 months: Yes. Aproximately how many cigarettes per day: 6. Cigars Per Day: 0. Hx Chewing Tobacco Use: Yes. Initiated information on smoking cessation: Yes. 'Breaking Loose' booklet given: 11/05/17. - Substance & Tx. History. Hx Alcohol Use: Yes. Hx Substance Use: No. Substance Use Type: Alcohol. Hx Substance Use Treatment: Yes ([facility]). - Substances Abused. VODKA. Route: Oral. Frequency : Daily. Amount used: 1 PINT. Age of first use: 32. Date of Last Use: Medical History: Co-morbidities : bronchial asthma,hypertension,fatty liver, diabetes mellitus,GERD and a history of appendectomy (age 16). Psychiatric History: No reported history of psychiatric hospitalizations.Patient reports the diagnosis of MDD which was established at a recent admission to the [facility] detoxification unit.Medicated with trazodone 150 mg/hs.Mr [place] denies history of suicide attempts. Physical/Sexual Abuse/Trauma History: Patient denies. Additional Comment: No toxicology available. Mental Status Exam - Mental Status Exam Alert and Oriented to: Time, Place, Person Cognitive Function: Good Patient Appearance: Unkempt, Disheveled Mood: Nervous, Withdrawn, Anxious Affect: Mood Congruent, Constricted Patient Behavior: Fatigued, Appropriate, Cooperative Speech Pattern: Clear, Appropriate Voice Loudness: Normal Thought Process: Intact, Goal Oriented Thought Disorder: Not Present Hallucinations: Denies Suicidal Ideation: Denies Homicidal Ideation: Denies Insight/Judgement: Poor Sleep: Poorly, Difficulty falling asleep Appetite: Good Muscle strength/Tone: Normal Gait/Station: Normal Psychiatric Findings - Problem List ([place] 1, 2,3) (1) Alcohol dependence with uncomplicated withdrawal Current Visit: Yes Status: Acute (2) Nicotine dependence Current Visit: Yes Status: Acute Qualifiers: Nicotine product type: cigarettes Substance use status: in withdrawal Qualified Code(s): F17.213 - Nicotine dependence, cigarettes, with withdrawal (3) Alcohol-induced mood disorder Current Visit: Yes Status: Chronic (4) Insomnia Current Visit: Yes Status: Acute - Initial Treatment Plan Initial Treatment Plan: Psychoeducation.Sleep hygiene.Detoxification in progress.Trazodone 100 mg po hs.Patient is made aware of the risk of parasomnias.Agrees to this careplan.Observation.
[2017-11-06] MEDS: traZODone HCL 100 MG TABLET (FP) PO SCH (22:00)
[2017-11-06] MEDS: THIAMINE HCL 100 MG TABLET (FP) PO SCH (22:00)
[2017-11-07] MEDS: chlordiazePOXIDE HCL 25 MG CAPSULE PO SCH ×3 (05:27→16:56)
[2017-11-07] MEDS: FLUTICASONE PROP 0.05% 16 GM NASAL SPRAY NS SCH (10:09)
[2017-11-07] MEDS: PRENATAL VITAMINS W/ FOLIC ACID TABLET (FP) PO SCH (10:09)
[2017-11-07] MEDS: NICOTINE 14 MG/24 HOURS TOPICAL PATCH TD SCH (10:11)
--- NOTE | 2017-11-07 15:24 | PN ---
[facility] CIWA - CIWA Score Nausea/Vomitin-Mild Nausea/No Vomiting Muscle Tremors: 2 Anxiety: 3 Agitation: 3 Paroxysmal Sweats: 3 Orientation: 0-Oriented Tacttile Disturbances: 1-Very Mild Itch/Numbness Auditory Disturbances: 0-None Visual Disturbances: 0-None Headache: 1-Very Mild CIWA-Ar Total Score: 14 S Progress Note (SOAP) Subjective: anxious, chills, headache, sinus congestion, diarrhea Objective: 11/07/17 15:22 Vital Signs Temperature 97.0 F L 11/07/17 13:10 Pulse Rate 103 H 11/07/17 13:10 Respiratory Rate 18 11/07/17 13:10 Blood Pressure 116/80 11/07/17 13:10 O2 Sat by Pulse Oximetry (%) Laboratory Last Values WBC 3.0 K/mm3 (4.0-10.0) L 11/06/17 07:30 RBC 4.41 M/mm3 (4.00-5.60) 11/06/17 07:30 Hgb 12.3 GM/dL (11.7-16.9) 11/06/17 07:30 Hct 37.3 % (35.4-49) 11/06/17 07:30 MCV 84.5 fl (80-96) 11/06/17 07:30 MCH 27.8 pg (25.7-33.7) 11/06/17 07:30 MCHC 32.9 g/dl (32.0-35.9) 11/06/17 07:30 RDW 16.8 % (11.9-15.9) H 11/06/17 07:30 Plt Count 70 K/MM3 (134-434) L D 11/06/17 07:30 MPV 8.6 fl (7.5-11.1) D 11/06/17 07:30 Sodium 136 mmol/L (136-145) 11/06/17 07:30 Potassium 3.5 mmol/L (3.5-5.1) 11/06/17 07:30 Chloride 97 mmol/L (98-107) L 11/06/17 07:30 Carbon Dioxide 26 mmol/L (21-32) 11/06/17 07:30 Anion Gap 13 (8-16) 11/06/17 07:30 BUN 5 mg/dL (7-18) L 11/06/17 07:30 Creatinine 0.6 mg/dL (0.7-1.3) L 11/06/17 07:30 Creat Clearance w eGFR > 60 (>60) 11/06/17 07:30 Random Glucose 62 mg/dL (74-106) L D 11/06/17 07:30 Calcium 8.4 mg/dL (8.5-10.1) L 11/06/17 07:30 Total Bilirubin 0.9 mg/dL (0.2-1.0) 11/06/17 07:30 AST 148 U/L (15-37) H 11/06/17 07:30 ALT 111 U/L (12-78) H 11/06/17 07:30 Alkaline Phosphatase 80 U/L (45-117) 11/06/17 07:30 Total Protein 7.8 g/dl (6.4-8.2) 11/06/17 07:30 Albumin 3.8 g/dl (3.4-5.0) 11/06/17 07:30 Urine Color Yellow 11/06/17 11:50 Urine Appearance Clear 11/06/17 11:50 Urine pH 7.0 (5.0-8.0) 11/06/17 11:50 Ur Specific [place] 1.017 (1.001-1.035) 11/06/17 11:50 Urine Protein Negative (NEGATIVE) 11/06/17 11:50 Urine Glucose (UA) Negative (NEGATIVE) 11/06/17 11:50 Urine Ketones 2+ (NEGATIVE) H 11/06/17 11:50 Urine Blood Negative (NEGATIVE) 11/06/17 11:50 Urine Nitrite Negative (NEGATIVE) 11/06/17 11:50 Urine Bilirubin Negative (<2.0 mg/dL) 11/06/17 11:50 Urine Urobilinogen 2.0 mg/dL (0.2-1.0) 11/06/17 11:50 Ur Leukocyte Esterase Negative (NEGATIVE) 11/06/17 11:50 RPR Titer Nonreactive (NONREACTIVE) 11/06/17 07:30 HIV 1&2 Antibody Screen Negative 11/06/17 07:30 HIV P24 Antigen Negative 11/06/17 07:30 AOx3 no distress, anxious BS x4 non tender non distended no adventitious breath sounds Full rom ambulating in the unit Assessment: 11/07/17 15:23 withdrawal symptoms Plan: continue detox immodium for diarrhea increase PO fluids as tolerated Flonase qd PRN for nasal congestion continue to monitor
[2017-11-07] MEDS: IBUPROFEN 400 MG TABLET (FP) PO PRN ×2 (15:29→22:15)
[2017-11-07] MEDS: P-EPHED 60MG/TRIPROLIDI 2.5MG TABLET PO PRN (16:59)
[2017-11-07] MEDS: chlordiazePOXIDE 5 MG CAPSULE PO SCH (22:10)
[2017-11-07] MEDS: THIAMINE HCL 100 MG TABLET (FP) PO SCH (22:10)
[2017-11-07] MEDS: traZODone HCL 100 MG TABLET (FP) PO SCH (22:10)
[2017-11-07] MEDS: MELATONIN 5 MG TABLETS PO PRN (22:13)
[2017-11-08] MEDS: chlordiazePOXIDE 5 MG CAPSULE PO SCH ×3 (05:36→18:27)
[2017-11-08] MEDS: IBUPROFEN 400 MG TABLET (FP) PO PRN ×2 (10:04→18:29)
[2017-11-08] MEDS: FLUTICASONE PROP 0.05% 16 GM NASAL SPRAY NS SCH (10:12)
[2017-11-08] MEDS: PRENATAL VITAMINS W/ FOLIC ACID TABLET (FP) PO SCH (10:12)
[2017-11-08] MEDS: NICOTINE 14 MG/24 HOURS TOPICAL PATCH TD SCH (10:12)
--- NOTE | 2017-11-08 13:56 | PN ---
[facility] Progress Note (SOAP) Subjective: pt states he has nasal congestion and sinusitis, worse after he takes a shower- would like benadryl and claritin which relieves Sx Objective: 11/08/17 13:54 Vital Signs - 24 hr 11/07/17 11/07/17 11/08/17 18:13 21:46 00:30 Temperature 97.5 F L 97.3 F L Pulse Rate 82 90 Respiratory 18 16 18 Rate Blood Pressure 121/85 114/77 11/08/17 11/08/17 11/08/17 03:30 06:42 09:30 Temperature 96.9 F L 96.7 F L Pulse Rate 70 58 L Respiratory 18 18 18 Rate Blood Pressure 100/53 95/64 Laboratory Tests 11/06/17 11/06/17 11/06/17 07:30 07:30 07:30 WBC 3.0 L RBC 4.41 Hgb 12.3 Hct 37.3 MCV 84.5 MCH 27.8 MCHC 32.9 RDW 16.8 H Plt Count 70 L D MPV 8.6 D Sodium 136 Potassium 3.5 Chloride 97 L Carbon Dioxide 26 Anion Gap 13 BUN 5 L Creatinine 0.6 L Creat Clearance w eGFR > 60 Random Glucose 62 L D Calcium 8.4 L Total Bilirubin 0.9 AST 148 H ALT 111 H Alkaline Phosphatase 80 Total Protein 7.8 Albumin 3.8 Urine Color Urine Appearance Urine pH Ur Specific [place] Urine Protein Urine Glucose (UA) Urine Ketones Urine Blood Urine Nitrite Urine Bilirubin Urine Urobilinogen Ur Leukocyte Esterase RPR Titer Nonreactive HIV 1&2 Antibody Screen HIV P24 Antigen 11/06/17 11/06/17 07:30 11:50 WBC RBC Hgb Hct MCV MCH MCHC RDW Plt Count MPV Sodium Potassium Chloride Carbon Dioxide Anion Gap BUN Creatinine Creat Clearance w eGFR Random Glucose Calcium Total Bilirubin AST ALT Alkaline Phosphatase Total Protein Albumin Urine Color Yellow Urine Appearance Clear Urine pH 7.0 Ur Specific [place] 1.017 Urine Protein Negative Urine Glucose (UA) Negative Urine Ketones 2+ H Urine Blood Negative Urine Nitrite Negative Urine Bilirubin Negative Urine Urobilinogen 2.0 Ur Leukocyte Esterase Negative RPR Titer HIV 1&2 Antibody Screen Negative HIV P24 Antigen Negative increased liver enzymes grossly nl PE Assessment: 11/08/17 13:55 withdrawal from alcohol Plan: alcohol detox protocol antihistamines and claritine for allergy/sinusitis
[2017-11-08] MEDS: LORATADINE 10 MG TABLET PO SCH (15:06)
[2017-11-08] MEDS: THIAMINE HCL 100 MG TABLET (FP) PO SCH (22:22)
[2017-11-08] MEDS: chlordiazePOXIDE HCL 10 MG CAPSULE PO SCH (22:22)
[2017-11-08] MEDS: traZODone HCL 100 MG TABLET (FP) PO SCH (22:22)
[2017-11-08] MEDS: MELATONIN 5 MG TABLETS PO PRN (22:23)
[2017-11-09] MEDS: chlordiazePOXIDE HCL 10 MG CAPSULE PO SCH ×2 (05:42→11:01)
[2017-11-09 09:41] VITALS: BP 100/78; PULSE 66; TEMP 98.2
[2017-11-09] MEDS: NICOTINE 14 MG/24 HOURS TOPICAL PATCH TD SCH (10:46)
[2017-11-09] MEDS: PRENATAL VITAMINS W/ FOLIC ACID TABLET (FP) PO SCH (10:46)
[2017-11-09] MEDS: LORATADINE 10 MG TABLET PO SCH (10:47)
[2017-11-09] MEDS: IBUPROFEN 400 MG TABLET (FP) PO PRN (11:00)
--- NOTE | 2017-11-09 19:27 | PN ---
[facility] Progress Note (SOAP) Subjective: Patient denies current Detox symptoms and reports that he feels well overall. Objective: PATIENT A & O X 3, OBSERVED AMBULATING ON UNIT. NO ACUTE DISTRESS. 11/09/17 19:26 Vital Signs Temperature 98.2 F 11/09/17 09:40 Pulse Rate 66 11/09/17 09:40 Respiratory Rate 18 11/09/17 09:40 Blood Pressure 100/78 11/09/17 09:40 O2 Sat by Pulse Oximetry (%) Laboratory Tests 11/06/17 11/06/17 11/06/17 07:30 07:30 07:30 WBC 3.0 L RBC 4.41 Hgb 12.3 Hct 37.3 MCV 84.5 MCH 27.8 MCHC 32.9 RDW 16.8 H Plt Count 70 L D MPV 8.6 D Sodium 136 Potassium 3.5 Chloride 97 L Carbon Dioxide 26 Anion Gap 13 BUN 5 L Creatinine 0.6 L Creat Clearance w eGFR > 60 Random Glucose 62 L D Calcium 8.4 L Total Bilirubin 0.9 AST 148 H ALT 111 H Alkaline Phosphatase 80 Total Protein 7.8 Albumin 3.8 Urine Color Urine Appearance Urine pH Ur Specific [place] Urine Protein Urine Glucose (UA) Urine Ketones Urine Blood Urine Nitrite Urine Bilirubin Urine Urobilinogen Ur Leukocyte Esterase RPR Titer Nonreactive HIV 1&2 Antibody Screen HIV P24 Antigen 11/06/17 11/06/17 07:30 11:50 WBC RBC Hgb Hct MCV MCH MCHC RDW Plt Count MPV Sodium Potassium Chloride Carbon Dioxide Anion Gap BUN Creatinine Creat Clearance w eGFR Random Glucose Calcium Total Bilirubin AST ALT Alkaline Phosphatase Total Protein Albumin Urine Color Yellow Urine Appearance Clear Urine pH 7.0 Ur Specific [place] 1.017 Urine Protein Negative Urine Glucose (UA) Negative Urine Ketones 2+ H Urine Blood Negative Urine Nitrite Negative Urine Bilirubin Negative Urine Urobilinogen 2.0 Ur Leukocyte Esterase Negative RPR Titer HIV 1&2 Antibody Screen Negative HIV P24 Antigen Negative LABS NOTED. Assessment: 11/09/17 19:26 COMPLETION OF DETOX REGIMEN. Plan: PATIENT SCHEDULED FOR DISCHARGE FROM DETOX UNIT TODAY.
--- NOTE | 2017-11-09 19:29 | DS ---
[facility] Detox Discharge Summary Admission Date: 11/05/17 Discharge Date: 11/09/17 - History Present History: Alcohol Dependence Additional Comments: PATIENT GOING [facility] [place]NTIL 11/12/2017, THEN WILL GO [facility] [place] FOR [place]CARE. PATIENT WAS DISCHARGED FROM DETOX UNIT IN STABLE MEDICAL CONDITION. Pertinent Past History: Asthma, HTN, G.E.R.D., History of Fatty Liver, History of Blackouts, History of Depression, Back Pain, Nicotine Dependence, Insomnia. - Physical Exam Results Vital Signs: Vital Signs Temperature 98.2 F 11/09/17 09:40 Pulse Rate 66 11/09/17 09:40 Respiratory Rate 18 11/09/17 09:40 Blood Pressure 100/78 11/09/17 09:40 O2 Sat by Pulse Oximetry (%) Pertinent Admission Physical Exam Findings: WITHDRAWAL SYMPTOMS. Laboratory Tests 11/06/17 11/06/17 11/06/17 07:30 07:30 07:30 WBC 3.0 L RBC 4.41 Hgb 12.3 Hct 37.3 MCV 84.5 MCH 27.8 MCHC 32.9 RDW 16.8 H Plt Count 70 L D MPV 8.6 D Sodium 136 Potassium 3.5 Chloride 97 L Carbon Dioxide 26 Anion Gap 13 BUN 5 L Creatinine 0.6 L Creat Clearance w eGFR > 60 Random Glucose 62 L D Calcium 8.4 L Total Bilirubin 0.9 AST 148 H ALT 111 H Alkaline Phosphatase 80 Total Protein 7.8 Albumin 3.8 Urine Color Urine Appearance Urine pH Ur Specific [place] Urine Protein Urine Glucose (UA) Urine Ketones Urine Blood Urine Nitrite Urine Bilirubin Urine Urobilinogen Ur Leukocyte Esterase RPR Titer Nonreactive HIV 1&2 Antibody Screen HIV P24 Antigen 11/06/17 11/06/17 07:30 11:50 WBC RBC Hgb Hct MCV MCH MCHC RDW Plt Count MPV Sodium Potassium Chloride Carbon Dioxide Anion Gap BUN Creatinine Creat Clearance w eGFR Random Glucose Calcium Total Bilirubin AST ALT Alkaline Phosphatase Total Protein Albumin Urine Color Yellow Urine Appearance Clear Urine pH 7.0 Ur Specific [place] 1.017 Urine Protein Negative Urine Glucose (UA) Negative Urine Ketones 2+ H Urine Blood Negative Urine Nitrite Negative Urine Bilirubin Negative Urine Urobilinogen 2.0 Ur Leukocyte Esterase Negative RPR Titer HIV 1&2 Antibody Screen Negative HIV P24 Antigen Negative LABS NOTED. - Treatment Hospital Course: Detox Protocol Followed, Detoxed Safely, Responded well, Discharged Condition Good, Rehab Referral Accepted Patient has Accepted a Rehab Referral to: [facility] ([place]). - Medication Discharge Medications: Ambulatory Orders traZODone HCL [Desyrel -] 100 mg PO HS #30 tablet 05/18/16 Albuterol Sulfate Inhaler - [Ventolin Hfa Inhaler -] 2 inh PO Q6H 11/05/17 traZODone HCL [Desyrel -] 100 mg PO HS #30 tablet 11/08/17 - Diagnosis (1) Alcohol dependence with uncomplicated withdrawal Status: Acute (2) Alcohol-induced mood disorder Status: Chronic (3) Asthma Status: Chronic Qualifiers: Asthma severity: unspecified severity Asthma persistence: unspecified Asthma complication type: unspecified Qualified Code(s): J45.909 - Unspecified asthma, uncomplicated (4) Back pain Status: Chronic Qualifiers: Back pain location: low back pain Chronicity: acute Back pain laterality : unspecified Sciatica presence: without sciatica Qualified Code(s): M54.5 - Low back pain (5) Blackout spell Status: Chronic (6) GERD (gastroesophageal reflux disease) Status: Chronic Qualifiers: Esophagitis presence: without esophagitis Qualified Code(s): K21.9 - Gastro -esophageal reflux disease without esophagitis (7) Hypertension Status: Chronic Qualifiers: Hypertension type: essential hypertension Qualified Code(s): I10 - Essential (primary) hypertension (8) Depression Status: Suspected Qualifiers: Depression Type: dysthymia Qualified Code(s): F34.1 - Dysthymic disorder (9) Insomnia Status: Acute Qualifiers: Insomnia type: unspecified Qualified Code(s): G47.00 - Insomnia, unspecified - AMA Did Patient Leave Against Medical Advice: No
== END 2017-11-09 12:05 | disposition home or self-care (01) | DRG 897 ==
LOC: YASAS 22:41 → Y3N 23:15
PROVIDERS: ADMIT Surgery; ATTEND Surgery
PROC: HZ2ZZZZ Detoxification Services for Substance Abuse Treatment (ICD-10-PCS; principal; 2017-11-05)
DX: F10.230 Alcohol dependence with withdrawal, uncomplicated (principal); F10.24 Alcohol dependence with alcohol-induced mood disorder; F17.210 Nicotine dependence, cigarettes, uncomplicated; F34.1 Dysthymic disorder; I10 Essential (primary) hypertension; J45.909 Unspecified asthma, uncomplicated; M54.5 Low back pain; K21.9 Gastro-esophageal reflux disease without esophagitis; G47.00 Insomnia, unspecified; R09.81 Nasal congestion; M79.1 Myalgia; K76.0 Fatty (change of) liver, not elsewhere classified; Z86.69 Personal history of other diseases of the nervous system and sense organs; Z59.0 Homelessness
CPT/HCPCS: 36415; 80053; 81003; 85027; 86593; 87389; 93005; 93010

== ENCOUNTER 2020-07-30 11:46 | Inpatient (IN) | payer OTHER ==
[2020-07-30 15:52] VITALS: BMI 20.9
[2020-07-30] MEDS ORDERED: MAGNESIUM HYDROX 2400MG/30ML ORAL SUSPENSION 30 ML CUP PO PRN (20:08)
[2020-07-30] MEDS ORDERED: BISMUTH SUBSALICYLATE 524 MG/30 ML UD PO PRN (20:08)
[2020-07-30] MEDS ORDERED: MAG HYDROX/AL HYDROX/SIMETH 30 ML UNIT-DOSE CUP PO PRN (20:08)
[2020-07-30] MEDS ORDERED: ACETAMINOPHEN 325 MG TABLET (FP) PO PRN ×2 (20:08)
[2020-07-30] MEDS ORDERED: IBUPROFEN 400 MG TABLET (FP) PO PRN (20:08)
[2020-07-30] MEDS ORDERED: ONDANSETRON *ODT* 4 MG TABLET SL PRN (20:08)
[2020-07-30] MEDS ORDERED: MENTHOL/PHENOL 1 EACH UD MM PRN (20:08)
[2020-07-30] MEDS ORDERED: LORazepam 1 MG TABLET PO PRN (20:08)
[2020-07-30] MEDS ORDERED: MAGNESIUM CITRATE 300 ML BOTTLE PO PRN (20:08)
[2020-07-30] MEDS ORDERED: LORazepam 2 MG TABLET ONE (21:52)
[2020-07-30] MEDS: MELATONIN 5 MG TABLETS PO SCH (22:12)
[2020-07-30] MEDS: LORazepam 2 MG TABLET PO SCH (22:12)
[2020-07-30] MEDS: THIAMINE HCL 100 MG TABLET (FP) PO SCH (22:13)
[2020-07-31] MEDS: ALBUTEROL SO4 HFA INHALER IH SCH ×5 (00:56→22:13)
[2020-07-31] MEDS: LORazepam 2 MG TABLET PO SCH ×4 (05:55→22:35)
[2020-07-31 10:37] LABS: HEMATOCRIT 33.1 % (35.4-49); HEMOGLOBIN 10.9 GM/dL (11.7-16.9); MCH 27.9 pg (25.7-33.7); MCHC 32.8 g/dl (32.0-35.9); MEAN CELL VOLUME 85.2 fl (80-96); MEAN PLT VOLUME 8.4 fl (7.5-11.1); RBC 3.89 M/mm3 (4.00-5.60); RDW 18.7 % (11.9-15.9)
[2020-07-31 10:51] LABS: CHLORIDE 94 mmol/L (98-107); SODIUM 133 mmol/L (136-145)
[2020-07-31 10:53] LABS: CALCIUM 8.7 mg/dL (8.5-10.1)
[2020-07-31 10:54] LABS: ALBUMIN 3.8 g/dl (3.4-5.0); BLOOD UREA NITROGEN 7.9 mg/dL (7-18); CO2 29 mmol/L (21-32); GLUCOSE,RANDOM 74 mg/dL (74-106)
[2020-07-31 10:57] LABS: CREATININE 0.6 mg/dL (0.55-1.3); SGOT/AST 133 U/L (15-37); SGPT/ALT 57 U/L (13-61)
[2020-07-31 10:59] LABS: BILIRUBIN,TOTAL 1.1 mg/dL (0.2-1); TOT PROT 7.8 g/dl (6.4-8.2)
[2020-07-31 11:00] LABS: ALK PHOS 76 U/L (45-117)
[2020-07-31] MEDS: PRENATAL VITAMINS W/ FOLIC ACID TABLET (FP) PO SCH (11:06)
[2020-07-31] MEDS: METHOCARBAMOL 500 MG TABLET PO PRN (11:07)
[2020-07-31 11:24] LABS: ANION GAP 11 MMOL/L (8-16)
[2020-07-31] MEDS ORDERED: POTASSIUM CHLORIDE ORAL LIQUID 20 MEQ/15 ML PO ONE ×3 (11:48→22:00)
[2020-07-31 11:58] LABS: PLATELET COUNT 28 K/MM3 (134-434)
[2020-07-31] MEDS: amLODIPine BESYLATE 5 MG TABLET (FP) PO SCH (15:04)
[2020-07-31] MEDS: MELATONIN 5 MG TABLETS PO SCH (22:13)
[2020-07-31] MEDS: traZODone HCL 100 MG TABLET (FP) PO SCH (22:13)
[2020-07-31] MEDS: THIAMINE HCL 100 MG TABLET (FP) PO SCH (22:13)
[2020-08-01] MEDS: LORazepam 1 MG TABLET PO SCH ×4 (05:22→22:00)
[2020-08-01] MEDS: ALBUTEROL SO4 HFA INHALER IH SCH ×4 (06:54→21:44)
[2020-08-01] MEDS ORDERED: MASKS NR ONE (07:31)
[2020-08-01] MEDS: amLODIPine BESYLATE 5 MG TABLET (FP) PO SCH (10:15)
[2020-08-01] MEDS: PRENATAL VITAMINS W/ FOLIC ACID TABLET (FP) PO SCH (10:15)
[2020-08-01 10:37] LABS: CALCIUM 9.1 mg/dL (8.5-10.1)
[2020-08-01 10:38] LABS: BLOOD UREA NITROGEN 7.7 mg/dL (7-18)
[2020-08-01 10:41] LABS: ALBUMIN 3.6 g/dl (3.4-5.0); CREATININE 0.7 mg/dL (0.55-1.3)
[2020-08-01 10:43] LABS: TOT PROT 7.8 g/dl (6.4-8.2)
[2020-08-01] MEDS: METHOCARBAMOL 500 MG TABLET PO PRN (12:46)
[2020-08-01] MEDS: THIAMINE HCL 100 MG TABLET (FP) PO SCH (21:15)
[2020-08-01] MEDS: MELATONIN 5 MG TABLETS PO SCH (21:15)
[2020-08-01] MEDS: traZODone HCL 100 MG TABLET (FP) PO SCH (21:15)
[2020-08-02] MEDS ORDERED: LORazepam 0.5 MG TABLET PO PRN
[2020-08-02] MEDS: LORazepam 0.5 MG TABLET PO SCH ×4 (05:23→22:02)
[2020-08-02] MEDS: ALBUTEROL SO4 HFA INHALER IH SCH ×4 (05:24→22:07)
[2020-08-02 06:07] LABS: SARS-CoV-2 NAA Not Detected (Not Detected)
[2020-08-02] MEDS: LOPERAMIDE HCL 2 MG CAPSULE PO PRN (07:49)
[2020-08-02] MEDS: amLODIPine BESYLATE 5 MG TABLET (FP) PO SCH (11:41)
[2020-08-02] MEDS: diphenhydrAMINE HCL 25 MG CAPSULE (FP) PO PRN ×2 (11:42→22:03)
[2020-08-02] MEDS: PRENATAL VITAMINS W/ FOLIC ACID TABLET (FP) PO SCH (11:43)
[2020-08-02 11:58] LABS: EOS % 0.9 % (0-4.5)
[2020-08-02 12:03] LABS: BASO % 0.3 % (0-2.0); HEMATOCRIT 33.3 % (35.4-49); HEMOGLOBIN 10.8 GM/dL (11.7-16.9); LYMPH % 5.9 % (8-40); MCH 28.4 pg (25.7-33.7); MCHC 32.3 g/dl (32.0-35.9); MEAN CELL VOLUME 87.8 fl (80-96); MEAN PLT VOLUME 10.2 fl (7.5-11.1); MONO % 11.5 % (3.8-10.2); NEUT % 81.4 % (42.8-82.8); PLATELET COUNT 50 K/MM3 (134-434); RBC 3.79 M/mm3 (4.00-5.60); WHITE BLOOD COUNT 8.1 K/mm3 (4.0-10.0)
[2020-08-02] MEDS: traZODone HCL 100 MG TABLET (FP) PO SCH (22:03)
[2020-08-02] MEDS: THIAMINE HCL 100 MG TABLET (FP) PO SCH (22:03)
[2020-08-02] MEDS: MELATONIN 5 MG TABLETS PO SCH (22:07)
[2020-08-03] MEDS: ALBUTEROL SO4 HFA INHALER IH SCH (03:52)
[2020-08-03] MEDS ORDERED: LORazepam 0.5 MG TABLET PO ONE (05:00)
[2020-08-03] MEDS: diphenhydrAMINE HCL 25 MG CAPSULE (FP) PO PRN (08:58)
[2020-08-03] MEDS: LOPERAMIDE HCL 2 MG CAPSULE PO PRN (08:58)
[2020-08-03 09:17] VITALS: BP 135/89; PULSE 108; TEMP 97.7
== END 2020-08-03 09:30 | disposition home or self-care (01) | DRG 775 ==
LOC: YASAS 11:46 → Y3N 23:24
PROVIDERS: ADMIT Allergy & Immunology; ATTEND Allergy & Immunology
PROC: HZ2ZZZZ Detoxification Services for Substance Abuse Treatment (ICD-10-PCS; principal; 2020-07-30)
DX: F10.230 Alcohol dependence with withdrawal, uncomplicated (principal); F19.24 Other psychoactive substance dependence with psychoactive substance-induced mood disorder; F10.24 Alcohol dependence with alcohol-induced mood disorder; F10.982 Alcohol use, unspecified with alcohol-induced sleep disorder; J45.909 Unspecified asthma, uncomplicated; M54.5 Low back pain; G89.29 Other chronic pain; Z99.89 Dependence on other enabling machines and devices; Z59.0 Homelessness
CPT/HCPCS: 36415; 80053; 82962; 84132; 85025; 85027; 86780; 93005; 93010; C9803; U0003; U0005

== ENCOUNTER 2021-06-05 14:08 | Inpatient (IN) | payer OTHER ==
[2021-06-05 16:07] VITALS: BMI 20.9
[2021-06-05] MEDS ORDERED: ONDANSETRON *ODT* 4 MG TABLET SL PRN (16:48)
[2021-06-05] MEDS ORDERED: hydrOXYzine PAMOATE 25 MG CAPSULE (FP) PO PRN (16:48)
[2021-06-05] MEDS ORDERED: ACETAMINOPHEN 325 MG TABLET (FP) PO PRN ×2 (16:48)
[2021-06-05] MEDS ORDERED: LOPERAMIDE HCL 2 MG CAPSULE PO PRN (16:48)
[2021-06-05] MEDS ORDERED: MAG HYDROX/AL HYDROX/SIMETH 30 ML UNIT-DOSE CUP PO PRN (16:48)
[2021-06-05] MEDS ORDERED: MAGNESIUM HYDROX 2400MG/30ML ORAL SUSPENSION 30 ML CUP PO PRN (16:48)
[2021-06-05] MEDS ORDERED: MENTHOL/PHENOL 1 EACH UD MM PRN (16:48)
[2021-06-05] MEDS ORDERED: MAGNESIUM CITRATE 300 ML BOTTLE PO PRN (16:48)
[2021-06-05] MEDS ORDERED: chlordiazePOXIDE HCL 25 MG CAPSULE PO PRN (16:50)
[2021-06-05] MEDS: chlordiazePOXIDE HCL 25 MG CAPSULE PO SCH ×2 (17:13→22:39)
[2021-06-05] MEDS: THIAMINE HCL 100 MG TABLET (FP) PO SCH (22:38)
[2021-06-05] MEDS: MELATONIN 5 MG TABLETS PO PRN (22:40)
[2021-06-05] MEDS: IBUPROFEN 400 MG TABLET (FP) PO PRN (22:55)
[2021-06-05] MEDS ORDERED: traZODone HCL 100 MG TABLET (FP) PO ONE (23:02)
[2021-06-06] MEDS: chlordiazePOXIDE HCL 25 MG CAPSULE PO SCH ×4 (06:26→22:29)
[2021-06-06] MEDS: IBUPROFEN 400 MG TABLET (FP) PO PRN ×2 (06:27→22:30)
[2021-06-06 09:58] LABS: HEMATOCRIT 32.3 % (35.4-49); HEMOGLOBIN 10.9 GM/dL (11.7-16.9); MCH 29.7 pg (25.7-33.7); MCHC 33.8 g/dl (32.0-35.9); MEAN CELL VOLUME 87.8 fl (80-96); MEAN PLT VOLUME 7.9 fl (7.5-11.1); PLATELET COUNT 210 10^3/uL (134-434); RBC 3.68 M/mm3 (4.00-5.60); RDW 15.9 % (11.9-15.9); WHITE BLOOD COUNT 4.2 K/mm3 (4.0-10.0)
[2021-06-06 10:05] LABS: ALBUMIN 3.1 g/dl (3.4-5.0); BLOOD UREA NITROGEN 7.8 mg/dL (7-18); CALCIUM 8.9 mg/dL (8.5-10.1); CREATININE 0.5 mg/dL (0.55-1.3)
[2021-06-06 10:07] LABS: BILIRUBIN,TOTAL 0.3 mg/dL (0.2-1); TOT PROT 6.4 g/dl (6.4-8.2)
[2021-06-06] MEDS: PRENATAL VITAMINS W/ FOLIC ACID TABLET (FP) PO SCH (10:17)
[2021-06-06] MEDS ORDERED: POTASSIUM CHLORIDE ORAL LIQUID 20 MEQ/15 ML PO ONE (12:13)
[2021-06-06] MEDS ORDERED: traZODone HCL 100 MG TABLET (FP) PO SCH (22:00)
[2021-06-06] MEDS: THIAMINE HCL 100 MG TABLET (FP) PO SCH (22:28)
[2021-06-06] MEDS: MELATONIN 5 MG TABLETS PO PRN (22:28)
[2021-06-06] MEDS: POTASSIUM CHLORIDE ORAL LIQUID 20 MEQ/15 ML PO SCH (22:29)
[2021-06-06] MEDS: METHOCARBAMOL 500 MG TABLET PO PRN (22:29)
[2021-06-07] MEDS: chlordiazePOXIDE HCL 25 MG CAPSULE PO SCH ×4 (05:35→22:23)
[2021-06-07] MEDS: IBUPROFEN 400 MG TABLET (FP) PO PRN (05:36)
[2021-06-07] MEDS: ALBUTEROL SO4 HFA INHALER IH PRN (09:44)
[2021-06-07] MEDS: HYDROCORTISONE 0.5% TOPICAL CREAM 30 GM TUBE TP SCH ×2 (09:45→22:22)
[2021-06-07] MEDS: BACITRACIN 0.9 GM PACKET TP SCH ×2 (09:45→22:21)
[2021-06-07] MEDS: POTASSIUM CHLORIDE ORAL LIQUID 20 MEQ/15 ML PO SCH ×2 (09:45→22:22)
[2021-06-07] MEDS: diphenhydrAMINE HCL 25 MG CAPSULE (FP) PO PRN (09:46)
[2021-06-07] MEDS: PRENATAL VITAMINS W/ FOLIC ACID TABLET (FP) PO SCH (09:46)
[2021-06-07 16:59] LABS: HEMATOCRIT 34.4 % (35.4-49); HEMOGLOBIN 11.2 GM/dL (11.7-16.9); MCH 28.9 pg (25.7-33.7); MCHC 32.7 g/dl (32.0-35.9); MEAN CELL VOLUME 88.4 fl (80-96); MEAN PLT VOLUME 8.3 fl (7.5-11.1); PLATELET COUNT 219 10^3/uL (134-434); RBC 3.89 M/mm3 (4.00-5.60); RDW 16.2 % (11.9-15.9); WHITE BLOOD COUNT 4.9 K/mm3 (4.0-10.0)
[2021-06-07 17:06] LABS: ALBUMIN 3.4 g/dl (3.4-5.0)
[2021-06-07 17:09] LABS: CREATININE 0.8 mg/dL (0.55-1.3)
[2021-06-07 17:11] LABS: BILIRUBIN,TOTAL 0.3 mg/dL (0.2-1); TOT PROT 7.1 g/dl (6.4-8.2)
[2021-06-07] MEDS: BISMUTH SUBSALICYLATE 524 MG/30 ML PO PRN ×2 (19:10→22:21)
[2021-06-07] MEDS: traZODone HCL 100 MG TABLET (FP) PO SCH (22:22)
[2021-06-07] MEDS: THIAMINE HCL 100 MG TABLET (FP) PO SCH (22:22)
[2021-06-08] MEDS ORDERED: chlordiazePOXIDE HCL 10 MG CAPSULE PO PRN
[2021-06-08] MEDS: chlordiazePOXIDE HCL 10 MG CAPSULE PO SCH ×4 (06:04→22:34)
[2021-06-08] MEDS: IBUPROFEN 400 MG TABLET (FP) PO PRN (06:09)
[2021-06-08] MEDS: PRENATAL VITAMINS W/ FOLIC ACID TABLET (FP) PO SCH (10:40)
[2021-06-08] MEDS: BACITRACIN 0.9 GM PACKET TP SCH ×2 (10:40→22:33)
[2021-06-08] MEDS: HYDROCORTISONE 0.5% TOPICAL CREAM 30 GM TUBE TP SCH ×2 (10:41→22:32)
[2021-06-08 12:08] LABS: SARS-CoV-2 NAA Not Detected (Not Detected)
[2021-06-08] MEDS: METHOCARBAMOL 500 MG TABLET PO PRN (18:34)
[2021-06-08] MEDS: traZODone HCL 100 MG TABLET (FP) PO SCH (22:34)
[2021-06-08] MEDS: THIAMINE HCL 100 MG TABLET (FP) PO SCH (22:34)
[2021-06-09] MEDS: chlordiazePOXIDE HCL 10 MG CAPSULE PO SCH ×2 (05:43→17:48)
[2021-06-09] MEDS: IBUPROFEN 400 MG TABLET (FP) PO PRN (05:48)
[2021-06-09] MEDS: BACITRACIN 0.9 GM PACKET TP SCH ×2 (10:08→22:42)
[2021-06-09] MEDS: HYDROCORTISONE 0.5% TOPICAL CREAM 30 GM TUBE TP SCH ×2 (10:08→22:43)
[2021-06-09] MEDS: PRENATAL VITAMINS W/ FOLIC ACID TABLET (FP) PO SCH (10:08)
[2021-06-09] MEDS: diphenhydrAMINE HCL 25 MG CAPSULE (FP) PO PRN ×2 (10:09→22:42)
[2021-06-09] MEDS: METHOCARBAMOL 500 MG TABLET PO PRN (17:50)
[2021-06-09] MEDS: ALBUTEROL SO4 HFA INHALER IH PRN (17:50)
[2021-06-09] MEDS: traZODone HCL 100 MG TABLET (FP) PO SCH (22:42)
[2021-06-09] MEDS: THIAMINE HCL 100 MG TABLET (FP) PO SCH (22:43)
[2021-06-09] MEDS: MELATONIN 5 MG TABLETS PO PRN (22:44)
[2021-06-10] MEDS ORDERED: chlordiazePOXIDE HCL 10 MG CAPSULE PO ONE (05:00)
[2021-06-10 09:21] VITALS: BP 114/81; PULSE 82; TEMP 98
[2021-06-10] MEDS: BACITRACIN 0.9 GM PACKET TP SCH (11:08)
[2021-06-10] MEDS: HYDROCORTISONE 0.5% TOPICAL CREAM 30 GM TUBE TP SCH (11:08)
[2021-06-10] MEDS: PRENATAL VITAMINS W/ FOLIC ACID TABLET (FP) PO SCH (11:08)
== END 2021-06-10 11:00 | disposition home or self-care (01) | DRG 775 ==
LOC: YASAS 14:08 → Y3N 18:55
PROVIDERS: ADMIT Allergy & Immunology; ATTEND Allergy & Immunology
PROC: HZ2ZZZZ Detoxification Services for Substance Abuse Treatment (ICD-10-PCS; principal; 2021-06-05)
DX: F10.230 Alcohol dependence with withdrawal, uncomplicated (principal); F17.213 Nicotine dependence, cigarettes, with withdrawal; F10.24 Alcohol dependence with alcohol-induced mood disorder; F41.9 Anxiety disorder, unspecified; F32.A Depression, unspecified; I10 Essential (primary) hypertension; E11.9 Type 2 diabetes mellitus without complications; G47.00 Insomnia, unspecified; K76.0 Fatty (change of) liver, not elsewhere classified; M25.511 Pain in right shoulder; M25.561 Pain in right knee; W19.XXXA Unspecified fall, initial encounter; Y92.239 Unspecified place in hospital as the place of occurrence of the external cause
CPT/HCPCS: 36415; 80053; 82962; 85027; 86780; 87811; C9803; U0003; U0005